=== PATIENT | male | born 1960 | race Caucasian/White ===

== ENCOUNTER 2016-09-01 10:49 | Emergency (ER) ==
[2016-09-01 10:59] VITALS: BP 148/80
--- NOTE | 2016-09-01 11:42 | PROVIDER DOCUMENTATION ---
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 States the back pain mostly in the left lower back, but also having radiation to the right thigh. Intermittent, worse with moving his back in a turning fashion. The left knee pain is medial, without radiation, aching. No pre- arrival treatments. This is workman's comp. Denies hitting head or loc Review of Systems - Adult - REVIEW OF SYSTEMS - ADULT Constitutional: reports: no symptoms reported. denies: chills, fever, fatique Eyes: reports: no symptoms reported. denies: decreased vision, blurred vision, double vision, eye pain Ears, Nose, Mouth & Throat: reports: no symptoms reported. denies: ear pain, nose pain, throat pain Cardiovascular: reports: no symptoms reported. denies: chest pain, palpitations Respiratory: reports: no symptoms reported. denies: cough, shortness of breath , wheezing Gastrointestinal: reports: no symptoms reported. denies: abdominal pain, diarrhea, nausea Genitourinary: reports: no symptoms reported. denies: dysuria, discharge, frequency Musculoskeletal: reports: see HPI, back pain, joint pain, muscle aches. denies : bone pain, joint swelling Integumentary: reports: no symptoms reported. denies: rash Neurological: reports: no symptoms reported. denies: headache/migraines Psychiatric: reports: no symptoms reported Endocrine: reports: no symptoms reported Hematologic/Lymphatic: reports: no symptoms reported Allergic/Immunologic: reports: no symptoms reported All Other Systems: Reviewed and Negative Past History - Adult - PAST MEDICAL HISTORY-ADULT Review of Records: reports: Old Records Reviewed, Nursing Assessment Review, Medications Reviewed, Social history reviewed & non-contributory. Major Childhood Illnesses: reports: denies history Cardiovascular: reports: denies history Respiratory: reports: denies history Gastrointestinal: reports: denies history Genitourinary: reports: denies history Musculoskeletal: reports: denies history Neurological: reports: denies history Endocrine/Immune: reports: denies history Other Conditions: reports: denies history - PRIOR SURGERIES/PROCEDURES Surgical/Procedure History: reports: reviewed, not pertinent - IMMUNIZATION STATUS Childhood Immunizations: See Nurse Assessment Flu Vaccine: See Nurse Assessment - FAMILY HISTORY Family History: reviewed, not pertinent - SOCIAL HISTORY Smoking: denies Substance Use: none/never Alcohol Use Frequency: twice a week Number of drinks per typical drinking period:: 5-10 drinks Living Situation: family Physical Exam-Injury Related - Physical Exam-Injury Related Initial Vital Signs Reviewed: Yes General Appearance: appears well, alert, no apparent distress Eyes: PERRL/EOMI, pink conjunctivae Head, Ears, Nose, Mouth & Throat: normocephalic/atraumatic, moist mucous membranes Neck: non-tender, full range of motion, supple, normal inspection. negative: C- spine tenderness Respiratory: chest non-tender, lungs clear, normal breath sounds, no pleuratic chest pain, no respiratory distress, no accessory muscle use. negative: respiratory distress, decreased breath sounds, accessory muscle use, crackles, rales, rhonchi, stridor, wheezing Cardiovascular: normal peripheral pulses, regular rate, rhythm Peripheral Pulses: radial (R): 2+, radial (L): 2+, dorsalis-pedis (R): 2+, dorsalis-pedis (L): 2+ Back Exam: normal inspection, no vertebral tenderness. negative: decreased range of motion, ecchymosis, muscle spasm, swelling, vertebral tenderness Extremity: normal range of motion, non-tender, normal gait, normal inspection. negative: erythema, inflammation, joint effusion, swelling, tenderness Integumentary: normal color, warm/dry, blanching Neurologic: grossly normal, no motor/sensory deficits Psych/Mental Status: normal mood/affect, normal thought content, normal thought process, oriented x 3 - Glascow Coma Score Best Eye Response ([place]): (4) open spontaneously Best Verbal Response ([place]): (5) oriented Best Motor Response ([place]): (6) obeys commands Progress - PLAN OF CARE/RESULTS Progress/Plan/Lab Results: Vital Signs Temp Pulse Resp BP Pulse Ox 09/01/16 10:57 98.2 F 60 20 148/80 98 No Known Allergies Allergy (Verified 09/01/16 11:17) No Home Medications 09/01/16 Orders Category Date Time Status KNEE 3 VIEWS LEFT [RAD] Stat Exams 09/01/16 11:29 Taken LUMBAR SPINE [RAD] Stat Exams 09/01/16 11:29 Taken [facility] URINE DRUG SCREEN Stat Lab 09/01/16 11:29 Uncollected Cyclobenzaprine [Flexeril] Med 09/01/16 12:03 Discontinued 10 mg PO NOW ONE - XRAY 1 XRAY: Bilateral XRAY Study: Lumbar Spine Impression: Normal (NAD reviewed c Dr. Dorman, ER prelim) 2 XRAY: Left XRAY Study: Knee Impression: Normal (NAD ER prelim) Departure - Departure Time of Disposition Order: 12:15 DIAGNOSIS: Fall Qualifiers: Encounter type: initial encounter Qualified Code(s): W19.XXXA - Unspecified fall, initial encounter Low back sprain Qualifiers: Encounter type: initial encounter Qualified Code(s): S33.9XXA - Sprain of unspecified parts of lumbar spine and pelvis, initial encounter Knee sprain Qualifiers: Encounter type: initial encounter Involved ligament of knee: unspecified ligament Laterality: left Qualified Code(s): S83.92XA - Sprain of unspecified site of left knee, initial encounter Disposition: HOME 01 Certified Medical Emergency: Emergent Condition: Stable Additional Instructions: Follow up with [facility] for further care ED Follow Up Instructions: You have been treated by a care provider in the Emergency Department. These instructions are being provided to you so you can have an understanding of how to care for yourself upon discharge. Upon discharge from the Emergency Department, you are responsible for making arrangements for follow-up care by a physician of your choice. Take all prescribed medications as directed. Return to the Emergency Department immediately for any new or worsening symptoms. You may call the Physician Referral phone number at [phone] to obtain a list of Physicians who are taking new patients. Attestation - Physician/ NIKI Attestation Patient care was provided by Advanced Practice Provider:: Yes Advanced Practice Provider:: Oralia Elise Advanced Practice Provider documentation review:: The Mid-level provider documentation, treatment plan and medical decision making was reviewed by the physician who agrees with all treatment and medical decision making by the MLP.
[2016-09-01] MEDS ORDERED: FLEXERIL PO ONE (12:03)
--- NOTE | 2016-09-01 14:47 | Diag Imaging Result Document ---
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 There is apparent suprapatellar effusion. IMPRESSION: 1. Effusion. 2. No evidence of acute fracture.
--- NOTE | 2016-09-01 17:24 | Diag Imaging Result Document ---
PROCEDURE NAME: LUMBAR SPINE - 09/01/2016 LUMBOSACRAL SPINE SERIES WITH OBLIQUES, 6 VIEWS: FINDINGS: There is partial sacralization of a transitional vertebra on the left. There is no evidence of fracture or subluxation. There are degenerative disk changes particularly in the T10- 11 and T11-12 disk spaces. IMPRESSION: No acute bony disease.
== END 2016-09-01 12:42 | disposition home or self-care (01) ==
LOC: ED 10:49
DX: S33.9XXA Sprain of unspecified parts of lumbar spine and pelvis, initial encounter (principal); S83.92XA Sprain of unspecified site of left knee, initial encounter; M54.5 Low back pain; M79.651 Pain in right thigh; M25.562 Pain in left knee; M79.1 Myalgia; W17.89XA Other fall from one level to another, initial encounter
CPT/HCPCS: 72110